=== PATIENT | male | born 1960 | race Two or more races ===

== ENCOUNTER 2018-09-19 17:17 | Emergency (ER) | payer SELFPAY ==
[~2018-09-19] VITALS: Ht 182.9 cm; Wt 67.6 kg
[2018-09-19 17:19] VITALS: BP 128/98
[2018-09-19] MEDS ORDERED: FLUCONAZOLE (100 MG) 100 MG TABLET ONE (17:48)
[2018-09-19] MEDS ORDERED: FLUCONAZOLE (100 MG) 100 MG TABLET PO ONE (18:00)
== END 2018-09-19 18:25 | disposition home or self-care (01) ==
LOC: ER 17:17
DX: B00.9 Herpesviral infection, unspecified (principal); Z60.2 Problems related to living alone

== ENCOUNTER 2018-11-01 17:39 | Emergency (ER) | payer MEDICAID ==
[~2018-11-01] VITALS: Ht 182.9 cm; Wt 81.6 kg
--- NOTE | 2018-11-01 17:50 | NUR ---
[id number] C/O ABDOMINAL PAIN +N/V/D X4 DAYS, ALSO C/O L SIDED CHEST PAIN, SHARP DESCRIBED BY PT WHEN INHALING. TO ER BED 10, HOOKED TO MONITOR, CHANGED TO GOWN, PROVIDED W WARM BLANKET, PT AOX4 , NOT IN DISTRESS, DR SIN AT BEDSIDE
[2018-11-01] MEDS ORDERED: IV NS 0.9% 1,000 ML BAG IV ONE (18:00)
[2018-11-01 18:02] LABS: BASOPHILS # (AUTO) 0.1 /CMM (0.0-0.2); BASOPHILS % (AUTO) 1.4 % (0.0-2.0); EOSINOPHILS % (AUTO) 0.6 % (0.0-6.0); HEMATOCRIT 44 % (39-51); HEMOGLOBIN 15.2 g/dL (13.5-17.5); LYMPHOCYTES % (AUTO) 20.5 % (20.0-44.0); MEAN CORPUSCULAR HGB CONC 35 g/dl (31.0-36.0); MEAN CORPUSCULAR VOLUME 90 fL (80-96); MONOCYTES # (AUTO) 0.6 /CMM (0.1-1.30); MONOCYTES % (AUTO) 12.8 % (2.0-12.0); NEUTROPHILS # (AUTO) 3.1 /CMM (1.8-8.9); NEUTROPHILS % (AUTO) 64.7 % (43.0-81.0); PLATELET COUNT (AUTO) 270 /CMM (150-450); RED BLOOD CELL COUNT(AUTO) 4.92 MIL/uL (4.5-6.0); WHITE BLOOD COUNT (AUTO) 4.8 K/uL (4.3-11.0)
--- NOTE | 2018-11-01 18:05 | NUR ---
URINE SAMPLE SENT TO LAB
[2018-11-01 18:09] LABS: APPEARANCE,URINE Clear (CLEAR); BILIRUBIN,URINE SMALL (NEGATIVE); BLOOD, URINE Trace-lysed Ery/uL (NEGATIVE); COLOR,URINE Yellow (YELLOW); KETONES,URINE Negative (NEGATIVE); LEUKOCYTE ESTERASE ,URINE Negative (NEGATIVE); NITRITE, URINE Positive (NEGATIVE); PH,URINE 5.5 (5.0-8.0); PROTEIN,URINE 100 mg/dl (NEGATIVE); UGLUCOSE Negative (NEGATIVE); UROBILINOGEN,URINE 0.2 EU/dL (0.2)
[2018-11-01 18:10] LABS: CALCIUM, SERUM 9.6 mg/dL (8.5-10.1); CARBON DIOXIDE 23 mmol/L (21-32); CHLORIDE 95 mmol/L (98-107); GLUCOSE 92 mg/dL (74-106); POTASSIUM 3.9 mmol/L (3.5-5.1); SODIUM SERUM 129 mmol/L (136-145); UREA NITROGEN, BLOOD 25 mg/dL (7-18)
--- NOTE | 2018-11-01 18:11 | NUR ---
MAINTENANCE CONTROLLER AT BEDSIDE
--- NOTE | 2018-11-01 18:13 | NUR ---
PROGRAM DIR AT BEDSIDE
[2018-11-01 18:16] LABS: ALANINE AMINOTRANSFERASE 31 U/L (12-78); ALBUMIN 3.7 g/dL (3.4-5.0); ALKALINE PHOSPHATASE 87 U/L (46-116); ASPARTATE AMINOTRANSFERASE 52 U/L (15-37); BILIRUBIN,DIRECT 0.1 mg/dL (0.0-0.2); BILIRUBIN,TOTAL 0.3 mg/dL (0.2-1.0); LIPASE 48 U/L (73-393); TOTAL PROTEIN, SERUM 9.4 g/dL (6.4-8.2)
[2018-11-01 18:27] LABS: BACTERIA,URINE Many /HPF (None Seen); SQUAMOUS EPITHELIAL CELL,UR Rare /HPF (None Seen); URINE AMORPHOUS URATE Moderate /HPF (None Seen)
[2018-11-01 18:28] LABS: MUCUS,URINE Few /LPF (None Seen)
--- NOTE | 2018-11-01 19:19 | NUR ---
REPORT GIVEN TO FRANCESCA LAFLEUR FOR ARTURO
[2018-11-01 19:34] VITALS: BP 118/72
--- NOTE | 2018-11-01 19:34 | NUR ---
Patient discharged to home in stable condition. Written and verbal after care instructions given. Patient verbalizes understanding of instruction. IV removed. Catheter intact and site benign. Pressure and 4x4 applied to site. No bleeding noted.
== END 2018-11-01 19:35 | disposition home or self-care (01) ==
LOC: ER 17:39
DX: R19.7 Diarrhea, unspecified (principal); I45.10 Unspecified right bundle-branch block; Z60.2 Problems related to living alone
CPT/HCPCS: 36415; 71045; 80048; 80076; 81001; 83690; 84484; 85025; 85730; 87015; 87045; 87086; 87427 ×3; 87493; 93005; 96360; 99284; J7030; 81000-TC; 87186-TC

== ENCOUNTER 2019-01-31 19:29 | Emergency (ER) | payer MEDICAID ==
[~2019-01-31] VITALS: Ht 182.9 cm; Wt 79.4 kg
[2019-01-31 19:55] VITALS: BP 144/96
== END 2019-01-31 21:15 | disposition home or self-care (01) ==
LOC: ER 19:33
DX: K12.0 Recurrent oral aphthae (principal); Z60.2 Problems related to living alone

== ENCOUNTER 2019-02-13 00:09 | Emergency (ER) | payer MEDICAID ==
[~2019-02-13] VITALS: Ht 182.9 cm; Wt 74.8 kg
--- NOTE | 2019-02-13 00:45 | NUR ---
PATIENT CAME IN DUE TO L KNEE PAIN. PER PATIENT HE SLIPPED 1-2HRS PRIOR TO ADMISSION. ASSISTED TO BED COMFORTABLY. VITAL SIGNS CHECKED AND RECORDED. WILL CONTINUE TO MONITOR ACCORDINGLY.
[2019-02-13] MEDS ORDERED: KETOROLAC TROMETHAMINE INJ 30 MG/ML VIAL ONE (01:15)
--- NOTE | 2019-02-13 01:15 | NUR ---
PATIENT BROUGHT TO X-RAY LAB VIA [facility] FOR CT OF LOWER EXTREMITY
--- NOTE | 2019-02-13 01:27 | NUR ---
PATIENT BACK TO ER ROOM 9 FROM RADIOLOGY DEPT.
[2019-02-13] MEDS ORDERED: KETOROLAC TROMETHAMINE INJ 60 MG/2 ML VIAL IM ONE (01:30)
[2019-02-13 03:54] VITALS: BP 141/81
== END 2019-02-13 03:54 | disposition home or self-care (01) ==
LOC: ER 00:11
DX: M25.461 Effusion, right knee (principal); F17.200 Nicotine dependence, unspecified, uncomplicated; Z60.2 Problems related to living alone; W01.0XXA Fall on same level from slipping, tripping and stumbling without subsequent striking against object, initial encounter; Y93.89 Activity, other specified; Y92.89 Other specified places as the place of occurrence of the external cause; Y99.8 Other external cause status
CPT/HCPCS: 29505; 73700; 96372; 99284; 99406; J1885

== ENCOUNTER 2019-02-14 01:00 | Emergency (ER) | payer MEDICAID ==
--- NOTE | 2019-02-14 01:36 | NUR ---
CALLED FOR TRIAGE, NO ANSWER.
--- NOTE | 2019-02-14 02:01 | NUR ---
CALLED FOR TRIAGE, NO ANSWER.
--- NOTE | 2019-02-14 02:13 | NUR ---
CALLED FOR TRIAGE, NO ANSWER.
== END 2019-02-14 02:13 | disposition left against medical advice (07) ==
LOC: ER 01:01
DX: Z53.21 Procedure and treatment not carried out due to patient leaving prior to being seen by health care provider (principal)

== ENCOUNTER 2019-03-13 22:47 | Emergency (ER) | payer MEDICAID ==
[~2019-03-13] VITALS: Ht 182.9 cm; Wt 78.0 kg
[2019-03-13 22:55] VITALS: BP 136/92
[2019-03-13] MEDS ORDERED: LIDOCAINE VISCOUS 2% UD 15 ML UDC ONE (23:21)
[2019-03-13] MEDS ORDERED: LIDOCAINE VISCOUS 2% UD 15 ML UDC MM ONE (23:30)
== END 2019-03-13 23:36 | disposition home or self-care (01) ==
LOC: ER 22:52
DX: K12.1 Other forms of stomatitis (principal); F17.200 Nicotine dependence, unspecified, uncomplicated; Z60.2 Problems related to living alone

== ENCOUNTER 2019-05-23 20:55 | Inpatient (IN) | payer OTHER ==
[~2019-05-23] VITALS: Ht 182.9 cm; Wt 60.3 kg
--- NOTE | 2019-05-23 21:10 | NUR ---
PT AAOX4. AMBULATORY. PT C/O ABD PAIN AND +N/V AND ORAL THRUSH X 4 DAYS. PT STATES HE HAS NOT BEEN EATING FOR FOUR DAYS, LOSS OF APPETITE. PT PLACED ON MONITOR AND PULSE OX. VSS. NO ACUTE DISTRESS NOTED.
[2019-05-23 21:29] LABS: BASOPHILS % (AUTO) 1.2 % (0.0-2.0); EOSINOPHILS % (AUTO) 1.1 % (0.0-6.0); HEMATOCRIT 44 % (39-51); HEMOGLOBIN 14.9 g/dL (13.5-17.5); LYMPHOCYTES # (AUTO) 1.2 /CMM (0.8-4.8); LYMPHOCYTES % (AUTO) 29.9 % (20.0-44.0); MEAN CORPUSCULAR HGB CONC 34 g/dl (31.0-36.0); MEAN CORPUSCULAR VOLUME 95 fL (80-96); MONOCYTES # (AUTO) 0.5 /CMM (0.1-1.30); MONOCYTES % (AUTO) 12.1 % (2.0-12.0); NEUTROPHILS # (AUTO) 2.3 /CMM (1.8-8.9); NEUTROPHILS % (AUTO) 55.7 % (43.0-81.0); PLATELET COUNT (AUTO) 259 /CMM (150-450); RED BLOOD CELL COUNT(AUTO) 4.66 MIL/uL (4.5-6.0)
[2019-05-23] MEDS ORDERED: IV NS 0.9% 1,000 ML BAG IV ONE (21:30)
[2019-05-23 21:33] LABS: APPEARANCE,URINE Clear (CLEAR); BILIRUBIN,URINE Negative (NEGATIVE); BLOOD, URINE Trace-intact Ery/uL (NEGATIVE); COLOR,URINE Yellow (YELLOW); KETONES,URINE Negative (NEGATIVE); LEUKOCYTE ESTERASE ,URINE Negative (NEGATIVE); NITRITE, URINE Negative (NEGATIVE); PH,URINE 6.5 (5.0-8.0); PROTEIN,URINE Trace mg/dl (NEGATIVE); UGLUCOSE Negative (NEGATIVE); UROBILINOGEN,URINE 0.2 EU/dL (0.2)
--- NOTE | 2019-05-23 21:38 | NUR ---
URINE AND LABS COLLECTED
[2019-05-23 21:39] LABS: CALCIUM, SERUM 9.9 mg/dL (8.5-10.1); CREATININE 1.4 mg/dL (0.6-1.3); POTASSIUM 4.2 mmol/L (3.5-5.1)
[2019-05-23 21:45] LABS: ALBUMIN 3.9 g/dL (3.4-5.0); BILIRUBIN,DIRECT 0.1 mg/dL (0.0-0.2); BILIRUBIN,TOTAL 0.3 mg/dL (0.2-1.0)
[2019-05-23 21:51] LABS: BACTERIA,URINE Rare /HPF (None Seen); SQUAMOUS EPITHELIAL CELL,UR Few /HPF (None Seen); WBC,URINE NONE SEEN /HPF (0-3)
[2019-05-23] MEDS ORDERED: HYDROMORPHONE 1 MG/1 ML DISP.SYRIN ONE (22:25)
[2019-05-23] MEDS ORDERED: ONDANSETRON HCL/PF 4 MG/2 ML VIAL ONE (22:25)
[2019-05-23] MEDS ORDERED: FLUCONAZOLE (100 MG) 100 MG TABLET ONE (22:25)
[2019-05-23] MEDS ORDERED: HYDROMORPHONE 1 MG/1 ML DISP.SYRIN IV ONE (22:30)
[2019-05-23] MEDS ORDERED: FLUCONAZOLE (100 MG) 100 MG TABLET PO ONE (22:30)
[2019-05-23] MEDS ORDERED: ONDANSETRON HCL/PF - ER 4 MG/2 ML VIAL IV ONE (22:30)
--- NOTE | 2019-05-24 00:37 | NUR ---
REPORT GIVEN TO UMESH LAFLEUR FOR ARTURO
[2019-05-24 00:45] VITALS: BP 135/79
[2019-05-24 01:00] VITALS: BP 135/79
[2019-05-24] MEDS ORDERED: [UNRECOGNIZED DRUG - OTHER] DT PRN (01:00)
[2019-05-24] MEDS ORDERED: MAGNESIUM HYDROXIDE 30 ML UDC PO PRN (01:00)
[2019-05-24] MEDS ORDERED: Z GUARD REMEDY 2 OZ OINT TP PRN (01:00)
[2019-05-24] MEDS ORDERED: ACETAMINOPHEN 325 MG TABLET PO PRN (01:00)
[2019-05-24] MEDS ORDERED: ONDANSETRON HCL/PF 4 MG/2 ML VIAL IVP PRN (01:00)
--- NOTE | 2019-05-24 01:00 | NUR ---
MS/RN NOTES/NEW ADMISSION RECEIVED NEW ADMITTED PATIENT IS A 58 YO MALE FROM [facility], CAME TO ER REPORTED UNABLE TO EAT FOR THE PAST 4 DAYS, WITH N/V, ORAL THRUSH AND DX OF MAINE. PATIENT ALERT, ORIENTED WITH HIV POSITIVE, WBC LOW AT 4, AMBULATORY, IV SITE ON LEFT AC, MD PINEDO ADMITTING DR, BELONGINGS CHECK, MRSA DONE AT ER, ROOM ORIENTATION PROVIDED, PREFER TO WEAR OWN CLOTHES, VITAL SIGNS CHECK WNL. MD PINEDO AT BED SIDE AND MEDICATION REPORTED TO BE RECONCILED UNABLE TO RECALL ANTIVIRAL MED.WILL MONITOR,BED LOCKED, CALL LIGHTS WITHIN REACH.
[2019-05-24] MEDS ORDERED: ACYCLOVIR IV 500 MG VIAL IV ONE (02:01)
[2019-05-24] MEDS: NYSTATIN (PYXIS) 500,000 UNIT/5 ML ORAL.SUSP PO SCH ×4 (02:22→17:13)
[2019-05-24] MEDS: ACYCLOVIR IV 1 GM in IV D5W 250 ML IV SCH ×4 (02:24→17:54)
[2019-05-24] MEDS: IV NS 0.9% 1,000 ML IV PRN ×2 (02:29→17:13)
--- NOTE | 2019-05-24 05:04 | NUR ---
MS/RN NOTES PATIENT LAST IV ANTIBIOTIC GIVEN AT 0200, 2ND DOSE TO GIVE AT 0500 AMMOT TO ADMINISTER DOSE TIME IS NOT DUE YET FOR ADMINISTRATION.
--- NOTE | 2019-05-24 06:30 | NUR ---
320-2MS/RN NOTES PATIENT ABLE TO SLEPT FEW HOURS, ON IV FLUIDS AT RUNNING, AT 75 ML./HR, ADMINISTERED IV ANTIBIOTIC , BED LOCKED, CALL LIGHTS WITHIN REACH, WILL MONITOR, REPORTED UNABLE TO TOLERATE FOODS. WITH PAIN IN THROAT. TO FOLLOW UP AND CONTACT PCP PAUL ABOUT PATIENT CONDITION.
[2019-05-24 07:02] LABS: CALCIUM, SERUM 9.3 mg/dL (8.5-10.1); CREATININE 1.2 mg/dL (0.6-1.3); MAGNESIUM 1.6 mg/dL (1.8-2.4); PHOSPHORUS 3.7 mg/dL (2.5-4.9); POTASSIUM 4.7 mmol/L (3.5-5.1)
[2019-05-24 07:03] LABS: EOSINOPHILS % (AUTO) 2.7 % (0.0-6.0); HEMATOCRIT 39 % (39-51); HEMOGLOBIN 13.2 g/dL (13.5-17.5); LYMPHOCYTES # (AUTO) 1.1 /CMM (0.8-4.8); LYMPHOCYTES % (AUTO) 37.2 % (20.0-44.0); MEAN CORPUSCULAR HGB CONC 34 g/dl (31.0-36.0); MEAN CORPUSCULAR VOLUME 94 fL (80-96); MONOCYTES # (AUTO) 0.6 /CMM (0.1-1.30); MONOCYTES % (AUTO) 19.2 % (2.0-12.0); NEUTROPHILS # (AUTO) 1.2 /CMM (1.8-8.9); NEUTROPHILS % (AUTO) 39.9 % (43.0-81.0); PLATELET COUNT (AUTO) 238 /CMM (150-450); RED BLOOD CELL COUNT(AUTO) 4.15 MIL/uL (4.5-6.0)
--- NOTE | 2019-05-24 07:46 | NUR ---
MS/RN Patient received Patient received from split leather department supervisor. A/O X3-4, vital signs stable, complaining of mouth pain due to mouth ulcers. Made aware that nystatin ordered and will administer before breakfast. All questions and concerns addressed. Call light within reach, bed in low setting. Patient aware of how to use call light to call for assistance. Will continue to monitor and ensure safety.
[2019-05-24 08:00] VITALS: BP 124/86
[2019-05-24] MEDS: FLUCONAZOLE (100 MG) 100 MG TABLET PO SCH (08:08)
[2019-05-24] MEDS ORDERED: RISP0.5T20 PO (08:49)
[2019-05-24] MEDS ORDERED: DARU1TAB3 PO (08:49)
--- NOTE | 2019-05-24 08:54 | NUR ---
MS/RN S/B Dr Bassett Seen by MD - to continue with current medications including nystatin before all meals. Mag level to be replaced as 1.6
--- NOTE | 2019-05-24 09:00 | NUR ---
MS/RN Magnesium First bag of magnesium hung as ordered.
[2019-05-24] MEDS: Magnesium 1GM/D5W 100ML PREMIX 100 ML IV SCH ×2 (09:09→09:51)
--- NOTE | 2019-05-24 10:10 | NUR ---
MS/RN Magnesium 2/2 Second bag of magnesium hung as ordered.
[2019-05-24 16:00] VITALS: BP 126/78
[2019-05-24] MEDS: ENSURE ENLIVE 237 ML LIQUID (VANILLA) PO SCH (17:13)
--- NOTE | 2019-05-24 17:52 | NUR ---
MS/RN Heplock New heplock inserted.
--- NOTE | 2019-05-24 18:12 | NUR ---
MS/RN End note Patient remains in stable condition, tolerating 100% of all meals with minimal discomfort. Will endorse to senior compliance analyst.
[2019-05-24] MEDS: HYDROCODONE/APAP 5/325MG 1 EACH TABLET PO PRN (19:45)
--- NOTE | 2019-05-24 20:00 | NUR ---
MS RN NOTES RECEIVED PATIENT AWAKE IN BED WITH NO DISTRESS NOTED. CALL LIGHT WITHIN REACH. PERIPHERAL LINE INTACT AND PATENT. NO C/O PAIN OR DISCOMFORT. ENCOURAGED USE OF CALL LIGHT FOR ASSISTANCE AND VERBALIZED GOOD UNDERSTANDING. BED IN LOW LOCK SETTING. ROOM FREE OF CLUTTER AND BELONGINGS KEPT NEAR BEDSIDE. WILL CONTINUE TO MONITOR.
[2019-05-24 20:57] VITALS: BP 124/71
[2019-05-24] MEDS: ZOLPIDEM TARTRATE 5 MG TABLET PO PRN (21:29)
[2019-05-25] MEDS: ACYCLOVIR IV 1 GM in IV D5W 250 ML IV SCH ×3 (00:42→19:05)
[2019-05-25 03:06] LABS: *BASOS 1 % (Not Estab.); *EOS 2 % (Not Estab.); *EOS, ABSOLUTE 0.1 x10E3/uL (0.0-0.4); *HGB 13.1 g/dL (13.0-17.7); *IMMATURE GRANULOCYTES 0 % (Not Estab.); *LYMPHOCYTES 39 % (Not Estab.); *LYMPHS, ABSOLUTE 1.4 x10E3/uL (0.7-3.1); *MCH 31.3 pg (26.6-33.0); *MCHC 32.8 g/dL (31.5-35.7); *MCV 96 fL (79-97); *MONOCYTES 19 % (Not Estab.); *MONOS, ABSOLUTE 0.7 x10E3/uL (0.1-0.9); *NEUTROPHILS 39 % (Not Estab.); *NEUTROPHILS, ABSOLUTE 1.3 x10E3/uL (1.4-7.0); *PLT 254 x10E3/uL (150-450); *RBC 4.18 x10E6/uL (4.14-5.80); *RDW 13.9 % (11.6-15.4)
--- NOTE | 2019-05-25 06:46 | NUR ---
MS RN NOTES PATIENT AWAKE IN BED WITH NO DISTRESS NOTED. CALL LIGHT WITHIN REACH. ALL DUE MEDS GIVEN ORDERED WITH NO ASE. NOTED WITH C/O OF SEVERE MOUTH PAIN, REFUSES PRN NORCO. PER PATIENT HE CAN WAIT AND WILL SPEAK TO THE DOCTOR WHEN THEY SEE HIM THIS MORNING. PERIPHERAL LINE INTACT AND PATENT. ROOM FREE OF CLUTTER AND BELONGINGS KEPT NEAR BEDSIDE. BED IN LOW LOCK SETTING WILL ENDORSE TO ONCOMING SHIFT.
--- NOTE | 2019-05-25 07:30 | NUR ---
RN MS NOTES PT IN BED, AWAKE, ALERT AND ORIENTED, NO COMPLAINT AT THIS TIME, RESPIRATIONS NORMAL, CALL LIGHT WITHIN REACH, IV FLUIDS INFUSING WELL, WISHES TO SPEAK TO THE DOCTOR, EXPLAINED THAT DOCTORS WILL BE DOING ROUNDS SHORTLY, VERBALIZED UNDERSTANDING, ALL NEEDS ATTENDED.
[2019-05-25 08:00] VITALS: BP 126/72
[2019-05-25 08:03] LABS: BASOPHILS % (AUTO) 0.9 % (0.0-2.0); EOSINOPHILS % (AUTO) 2.3 % (0.0-6.0); HEMATOCRIT 37 % (39-51); HEMOGLOBIN 12.5 g/dL (13.5-17.5); LYMPHOCYTES # (AUTO) 0.9 /CMM (0.8-4.8); LYMPHOCYTES % (AUTO) 27.7 % (20.0-44.0); MEAN CORPUSCULAR HGB CONC 34 g/dl (31.0-36.0); MEAN CORPUSCULAR VOLUME 93 fL (80-96); MONOCYTES # (AUTO) 0.6 /CMM (0.1-1.30); MONOCYTES % (AUTO) 17.9 % (2.0-12.0); NEUTROPHILS # (AUTO) 1.6 /CMM (1.8-8.9); NEUTROPHILS % (AUTO) 51.2 % (43.0-81.0); PLATELET COUNT (AUTO) 229 /CMM (150-450); RED BLOOD CELL COUNT(AUTO) 3.97 MIL/uL (4.5-6.0); WHITE BLOOD COUNT (AUTO) 3.1 K/uL (4.3-11.0)
[2019-05-25 08:59] LABS: CALCIUM, SERUM 8.6 mg/dL (8.5-10.1); CREATININE 1.1 mg/dL (0.6-1.3); MAGNESIUM 1.7 mg/dL (1.8-2.4); POTASSIUM 4.1 mmol/L (3.5-5.1)
[2019-05-25] MEDS: ENSURE ENLIVE 237 ML LIQUID (VANILLA) PO SCH ×3 (09:43→17:18)
[2019-05-25] MEDS: FLUCONAZOLE (100 MG) 100 MG TABLET PO SCH (09:43)
[2019-05-25] MEDS: NYSTATIN (PYXIS) 500,000 UNIT/5 ML ORAL.SUSP PO SCH ×3 (09:43→17:18)
[2019-05-25] MEDS: LIDOCAINE VISCOUS 2% UD 15 ML UDC MM SCH ×2 (09:43→17:18)
[2019-05-25] MEDS: Magnesium 1GM/D5W 100ML PREMIX 100 ML IV SCH ×2 (09:45→13:58)
[2019-05-25 13:06] LABS: *% CD 4 POS. LYMPH 25.3 % (30.8-58.5); *% CD 8 POS. LYMPH 50.6 % (12.0-35.5); *ABSOLUTE CD 4 HELPER 354 /uL (359-1519); *ABSOLUTE CD 8 SUPPRESSOR 708 /uL (109-897)
[2019-05-25 16:00] VITALS: BP 116/75
--- NOTE | 2019-05-25 19:00 | NUR ---
RN MS NOTES PT IN BED, RESTING, NO COMPLAINT OF PAIN OR ANY DISCOMFORT, SEEN BY DR. BARRIGA THIS MORNING, PLAN OF CARE DISCUSSED WITH PT, VERBALIZED UNDERSTANDING, IV FLUIDS INFUSING WELL, CALL LIGHT WITHIN REACH, ALL NEEDS ATTENDED.
--- NOTE | 2019-05-25 19:30 | NUR ---
MS RN OPENING NOTES RECEIVED PATIENT FROM MORNING SHIFT ALERT AND ORIENTED X 3. VERBALLY RESPONSIVE AND ABLE TO FOLLOW DIRECTIONS. BREATHING REGULAR AND UNLABORED ON ROOM AIR. LEFT FOREARM G22 IV LINE PATENT AND INTACT, INFUSING WELL WITH NO BLEEDING OR S/S OF INFECTION/INFILTRATION NOTED. BODY ASSESSMENT DONE, SKIN REMAINED INTACT CLEAN AND DRY. NO COMPLAINTS OF PAIN/DISCOMFORT REPORTED OF THE TIME. BED LOW AND LOCKED ON SEMI FOWLERS POSITION. CALL LIGHT IN REACH. WILL CONTINUE TO MONITOR.
[2019-05-25 20:00] VITALS: BP 118/73
[2019-05-25 22:00] VITALS: BP 118/73
[2019-05-25] MEDS: HYDROCODONE/APAP 5/325MG 1 EACH TABLET PO PRN (22:06)
--- NOTE | 2019-05-25 22:10 | NUR ---
MS RN NOTES COMPLAINED OF 7/10 ABDOMINAL PAIN. NORCO 5/325 TAB GIVEN BY MOUTH. NON-PHARMACOLOGICAL INTERVENTIONS PROVIDED. VITAL SIGNS WNL. WILL CONTINUE TO MONITOR.
[2019-05-25] MEDS ORDERED: POLYVINYL ALCOHOL 15 ML BOTTLE EACHEYE PRN (23:00)
--- NOTE | 2019-05-25 23:00 | NUR ---
MS RN NOTES COMPLAINED OF BOTH EYE PAIN SEEN WITH REDNESS AND CLEAR WATERY DISCHARGES. HARPREET ARIZMENDI NOTIFIED RECEIVED ORDER FOR ARTIFICIAL TEARS TID NEEDED, CARRIED OUT.
[2019-05-26] MEDS: ZOLPIDEM TARTRATE 5 MG TABLET PO PRN (00:15)
--- NOTE | 2019-05-26 00:20 | NUR ---
MS RN NOTES COMPLAINED OF INABILITY TO STAY ASLEEP, AMBIEN 5MG GIVEN BY MOUTH. NON-PHARMACOLOGICAL INTERVENTIONS PROVIDED. WILL CONTINUE TO MONITOR.
[2019-05-26] MEDS: ACYCLOVIR IV 1 GM in IV D5W 250 ML IV SCH ×2 (00:51→09:44)
[2019-05-26] MEDS: LIDOCAINE VISCOUS 2% UD 15 ML UDC MM SCH ×2 (00:52→09:46)
--- NOTE | 2019-05-26 06:30 | NUR ---
MS CIARRA OPENING NOTES PATIENT IN BED ALERT AND ORIENTED X 3. VERBALLY RESPONSIVE AND ABLE TO FOLLOW DIRECTIONS. BREATHING REGULAR AND UNLABORED ON ROOM AIR. LEFT FOREARM G22 IV LINE PATENT AND INFUSING WELL. NO COMPLAINTS OF PAIN/DISCOMFORT REPORTED OF THE TIME. BED LOW AND LOCKED ON SEMI FOWLERS POSITION. CALL LIGHT IN REACH. WILL ENDORSE TO MORNING SHIFT FOR ARTURO. Addendum: 05/26/19 at 0642 by HERIBERTO TORRES RN MS LAFLEUR CLOSING NOTES
[2019-05-26 07:22] LABS: CALCIUM, SERUM 9.4 mg/dL (8.5-10.1); CREATININE 1.2 mg/dL (0.6-1.3); MAGNESIUM 1.9 mg/dL (1.8-2.4); POTASSIUM 4.8 mmol/L (3.5-5.1)
--- NOTE | 2019-05-26 07:30 | NUR ---
M/S RN NOTES PATIENT AWAKE IN BED, ALERT AND ORIENTED X4, NO RESPIRATORY DISTRESS, COMPLAINING OF RT EYE PAIN BUT TOLERABLE AT THIS TIME. PATIENT'S SKIN WARM TO TOUCH, IV ACCESS SITE INTACT AND PATENT. PATIENT'S NEEDS ATTENDED, BED ON LOWEST LOCKED POSITION, CALL LIGHT WITHIN REACH. WILL CONTINUE TO MONITOR.
[2019-05-26 08:00] VITALS: BP 117/90
[2019-05-26] MEDS ORDERED: ACYC400T PO (08:45)
[2019-05-26] MEDS ORDERED: LIDO20SO13 MM (08:45)
[2019-05-26] MEDS ORDERED: TRIA5PAS4 DT (08:45)
[2019-05-26] MEDS ORDERED: NYST5ORA PO (08:45)
[2019-05-26] MEDS: NYSTATIN (PYXIS) 500,000 UNIT/5 ML ORAL.SUSP PO SCH ×2 (09:43→13:00)
[2019-05-26] MEDS: FLUCONAZOLE (100 MG) 100 MG TABLET PO SCH (09:46)
[2019-05-26] MEDS: ENSURE ENLIVE 237 ML LIQUID (VANILLA) PO SCH ×2 (09:47→13:28)
[2019-05-26] MEDS: HYDROCODONE/APAP 5/325MG 1 EACH TABLET PO PRN (11:19)
--- NOTE | 2019-05-26 13:30 | NUR ---
M/S RN NOTES PATIENT DISCHARGED IN STABLE CONDITION, VSS. PATIENT IN NO RESPIRATORY DISTRESS, NO C/O PAIN AT THIS TIME. SKIN WARM TO TOUCH, SKIN ASSESSED NO SKIN BREAKDOWN. PATIENT'S IV REMOVED AND APPLIED PRESSURE DRESSING. PATIENT GIVEN DISCHARGE INSTRUCTIONS, VERBALIZED UNDERSTANDING. PATIENT'S BELONGINGS ACCOUNTED FOR AND SIGNED. PATIENT LEFT WITH GIRLFRIEND VIA PRIVATE CAR.
== END 2019-05-26 13:30 | disposition home or self-care (01) | DRG 893 ==
LOC: ER 20:55 → MED 05-24 00:14
PROVIDERS: ADMIT Nurse Practitioner Acute Care; ATTEND Family Medicine
DX: B20 Human immunodeficiency virus [HIV] disease (principal); E43 Unspecified severe protein-calorie malnutrition; E83.42 Hypomagnesemia; N17.0 Acute kidney failure with tubular necrosis; B37.0 Candidal stomatitis; B00.9 Herpesviral infection, unspecified; M19.90 Unspecified osteoarthritis, unspecified site; F17.200 Nicotine dependence, unspecified, uncomplicated; D72.819 Decreased white blood cell count, unspecified; K14.6 Glossodynia; K12.0 Recurrent oral aphthae
CPT/HCPCS: 36415; 80048-TC; 80061-TC; 80076-TC; 81000-TC; 83690-TC; 83735-TC; 84100-TC; 85025-TC; 86360; 87081-TC; G0378; J0133; J1170; J2405; J3475; J7030; J7060

== ENCOUNTER 2019-07-24 03:27 | Emergency (ER) | payer OTHER ==
[~2019-07-24] VITALS: Ht 182.9 cm; Wt 61.2 kg
[~2019-07-24 03:27] MED LIST: ACYC400T PO; DARU1TAB3 PO; LIDO20SO13 MM; NYST5ORA PO; RISP0.5T20 PO; TRIA5PAS4 DT
[2019-07-24 03:42] VITALS: BP 135/95
[2019-07-24] MEDS ORDERED: LIDOCAINE VISCOUS 2% UD 15 ML UDC MM ONE (04:00)
[2019-07-24] MEDS ORDERED: LIDOCAINE VISCOUS 2% UD 15 ML UDC ONE (04:12)
== END 2019-07-24 04:22 | disposition home or self-care (01) ==
LOC: ER 03:31
DX: K12.1 Other forms of stomatitis (principal); F17.200 Nicotine dependence, unspecified, uncomplicated; Z60.2 Problems related to living alone; Z79.899 Other long term (current) drug therapy

== ENCOUNTER 2019-08-06 21:12 | Emergency (ER) | payer OTHER ==
[~2019-08-06] VITALS: Ht 182.9 cm; Wt 68.0 kg
[2019-08-06 21:20] VITALS: BP 149/99
--- NOTE | 2019-08-06 21:38 | NUR ---
Patient discharged to home in stable condition. Written and verbal after care instructions given. Patient verbalizes understanding of instruction.
== END 2019-08-06 21:38 | disposition home or self-care (01) ==
LOC: ER 21:12
DX: K13.70 Unspecified lesions of oral mucosa (principal); Z76.0 Encounter for issue of repeat prescription; Z79.899 Other long term (current) drug therapy

== ENCOUNTER 2019-08-14 12:30 | Emergency (ER) | payer OTHER ==
[~2019-08-14] VITALS: Ht 182.9 cm; Wt 79.4 kg
--- NOTE | 2019-08-14 12:42 | NUR ---
DR HERNANDEZ AT BEDSIDE FOR EVAL.
[2019-08-14] MEDS ORDERED: IV NS 0.9% 500 ML BAG IV ONE (13:00)
--- NOTE | 2019-08-14 13:10 | NUR ---
IV LINE STARTED BLOOD DRAWN AND SENT TO LAB.
[2019-08-14 13:15] LABS: BASOPHILS % (AUTO) 1.1 % (0.0-2.0); EOSINOPHILS % (AUTO) 6.2 % (0.0-6.0); HEMATOCRIT 41 % (39-51); HEMOGLOBIN 13.8 g/dL (13.5-17.5); LYMPHOCYTES # (AUTO) 0.7 /CMM (0.8-4.8); LYMPHOCYTES % (AUTO) 23.1 % (20.0-44.0); MEAN CORPUSCULAR HGB CONC 34 g/dl (31.0-36.0); MEAN CORPUSCULAR VOLUME 95 fL (80-96); MONOCYTES # (AUTO) 0.6 /CMM (0.1-1.30); MONOCYTES % (AUTO) 19.8 % (2.0-12.0); NEUTROPHILS # (AUTO) 1.6 /CMM (1.8-8.9); NEUTROPHILS % (AUTO) 49.8 % (43.0-81.0); PLATELET COUNT (AUTO) 251 /CMM (150-450); RED BLOOD CELL COUNT(AUTO) 4.34 MIL/uL (4.5-6.0); WHITE BLOOD COUNT (AUTO) 3.1 K/uL (4.3-11.0)
[2019-08-14 13:23] LABS: CARBON DIOXIDE 26 mmol/L (21-32); CHLORIDE 102 mmol/L (98-107); CREATININE 0.9 mg/dL (0.6-1.3); GLUCOSE 89 mg/dL (74-106); POTASSIUM 4.1 mmol/L (3.5-5.1); SODIUM SERUM 136 mmol/L (136-145); UREA NITROGEN, BLOOD 19 mg/dL (7-18)
[2019-08-14 13:35] LABS: ALANINE AMINOTRANSFERASE 51 U/L (12-78); ALBUMIN 3.5 g/dL (3.4-5.0); ALKALINE PHOSPHATASE 90 U/L (46-116); ASPARTATE AMINOTRANSFERASE 16 U/L (15-37); B-TYPE NATRIURETIC PEPTIDE 50 PG/ML (0-125); BILIRUBIN,TOTAL 0.1 mg/dL (0.2-1.0); TOTAL PROTEIN, SERUM 8.4 g/dL (6.4-8.2)
[2019-08-14 14:06] LABS: ABG BASE EXCESS -1.9 mmol/L; ABG OXYGEN SATURATION 95.4 % (92.0-98.5); ABG PCO2 40.1 mmHg (35.0-45.0); ABG PH 7.377 (7.350-7.450); ABG PO2 83.1 mmHg (75.0-100.0); AaDO2 18.6 mmHg; COHb 3.5 % (0.5-1.5); MetHb 0.4 % (0.0-1.5); O2Hb 91.7 % (94.0-97.0); SITE, ABG Left Radial; VENT MODE, BG 5L NC
--- NOTE | 2019-08-14 16:11 | NUR ---
SEEN AND RE EVALUATED BY DR BUTLER. IV LINE DISCONTINUED. D/C HOME IN STABLE CONDITION.
[2019-08-14 16:13] VITALS: BP 132/76
== END 2019-08-14 16:14 | disposition home or self-care (01) ==
LOC: ER 12:34
DX: R05 Cough (principal); K12.0 Recurrent oral aphthae; Z79.899 Other long term (current) drug therapy
CPT/HCPCS: 0099U; 36415; 36600; 71045; 80048; 80076; 83880; 84145; 84484; 85025; 87040 ×2; 87635; 87804; 93005; 99285; J7040

== ENCOUNTER 2024-04-05 15:42 | Emergency (ER) | payer OTHER ==
[~2024-04-05] VITALS: Ht 182.9 cm; Wt 74.8 kg
[~2024-04-05 15:42] MED LIST changes: -ACYC400T PO; +ACYC400T19 PO; -RISP0.5T20 PO; +RISP0.5T65 PO
[2024-04-05] MEDS: ONDANSETRON 4 MG TAB.RAPDIS SL ONE (17:00)
[2024-04-05] MEDS: IV NS 0.9% 1,000 ML BAG IV ONE (17:00)
[2024-04-05] MEDS ORDERED: ONDANSETRON 4 MG TAB.RAPDIS ONE (17:08)
[2024-04-05 17:25] LABS: BASOPHILS % (AUTO) 1.1 % (0.0-2.0); EOSINOPHILS % (AUTO) 1.2 % (0.0-6.0); HEMATOCRIT 37 % (39-51); HEMOGLOBIN 12.6 g/dL (13.5-17.5); LYMPHOCYTES # (AUTO) 0.9 K/uL (0.8-4.8); LYMPHOCYTES % (AUTO) 27.2 % (20.0-44.0); MEAN CORPUSCULAR HEMOGLOBIN 31 PG (26.0-33.0); MEAN CORPUSCULAR HGB CONC 34 g/dl (31.0-36.0); MEAN CORPUSCULAR VOLUME 91 fL (80-96); MONOCYTES # (AUTO) 0.4 K/uL (0.1-1.30); MONOCYTES % (AUTO) 10.7 % (2.0-12.0); NEUTROPHILS # (AUTO) 2.1 K/uL (1.8-8.9); NEUTROPHILS % (AUTO) 59.8 % (43.0-81.0); PLATELET COUNT (AUTO) 334 K/uL (150-450); RED BLOOD CELL COUNT(AUTO) 4.04 MIL/uL (4.5-6.0); RED CELL DISTRIBUTION WIDTH 14.2 % (11.5-15.0); WHITE BLOOD COUNT (AUTO) 3.5 K/uL (4.3-11.0)
[2024-04-05 17:48] LABS: CALCIUM, SERUM 8.8 mg/dL (8.5-10.1); POTASSIUM 3.9 mmol/L (3.5-5.1)
[2024-04-05 18:46] VITALS: BP 148/85; TEMP 98.8; O2SAT 95
== END 2024-04-05 18:47 | disposition home or self-care (01) ==
LOC: ER 15:44
DX: R11.2 Nausea with vomiting, unspecified (principal); F17.200 Nicotine dependence, unspecified, uncomplicated; Z79.624 Long term (current) use of inhibitors of nucleotide synthesis; Z79.899 Other long term (current) drug therapy
CPT/HCPCS: 99283; 96360; 85025; 80048; 36415; J7030; Q0162